=== PATIENT | female | born 1940 | race Caucasian/White ===

== ENCOUNTER 2023-09-17 20:58 | Emergency (ER) | payer MEDICARE, BC, SELFPAY ==
[2023-09-17 21:00] VITALS: BP 159/98; BMI 17.6
--- NOTE | 2023-09-17 21:11 | ED.GENMED ---
History of Present Illness
General
Chief Complaint: Fall
Source: patient and ambulance crew
Exam Limitations: none
Time Seen by Provider: 09/17/23 21:09
Nursing documentation reviewed up to this point in time: agreed with
Travel History
Have you had any contact with someone who has COVID-19?: No
Do you have any symptoms of coronavirus? Fever > 100 degrees, chills, cough, shortness of breath, sore throat, loss of taste or smell, muscle aches, or headache?: No
History of Present Illness
History of Present Illness:
83-year-old female with laceration with history of HTN, basal cell cancer removed from right lower leg 4 weeks ago and still has a dressing on, lives with her son and his , she remembers going into her bathroom to get her night shirt on and next
thing she remembers she was on the floor yelling out for her son. He came and helped her up and she walked to the bed. She is not sure if she felt dizzy, she denies losing consciousness. No blood thinners
Pt Denies headache, neck pain. Denies pain in extremities. Denies n/v/d/c. Patrice CP, SOB or abdominal pain
Past History
Past History
ED Past Medical History: HTN and Other (Stress-induced ischemia followed by dr villa)
ED Past Surgical History: Cholecystectomy
Social History
Tobacco: Non-smoker
Alcohol: Occasional
Drug: None
Personal: Single
Living: with family
Employment: Retired
Family History
Family History: Other (Noncontributory)
Review of Systems
Review of Systems
Allergies reviewed?: Yes
All Other Systems: ROS reviewed and negative except as documented in HPI and ROS
Constitutional: Denies fever or fatigue
Respiratory: Denies trouble breathing
Cardiac: Reports syncope (She states she does not think she lost consciousness but then states she does not know how she got on the floor); Denies chest pain or palpitations
ABD/GI: Reports no symptoms
: Reports no symptoms
Musculoskeletal: Reports no symptoms
Skin: Reports other (Abrasion right shoulder and elbow, laceration forehead and left upper cheek)
Neurological: Reports no symptoms
Phy Exam
Physical Exam
Physical Exam:
GENERAL: No acute distress. A&Ox3.
CONSTITUTIONAL: Afebrile.
EYES: PERRL, conjunctivae normal, EOMs intact
Neck: Supple
ENMT: moist mucus membranes, Pharynx nl
RESPIRATORY: Regular respirations, nonlabored, lungs clear.
CARDIOVASCULAR: Regular rate and rhythm, no murmurs, no rubs.
GI: Soft, nontender, normal BS
MUSCULOSKELETAL: No spinal bony tenderness. Moving all extremities well. No bony tenderness to extremities. Moves with ease. Well perfused.
SKIN: Warm, dry, pink, laceration forehead, laceration left infraorbital area,deep clean abrasion right shoulder and right elbow
PSYCH: Normal mood and affect. Well kept, interactive and appropriate
NEUROLOGIC: Awake, alert and oriented. Speech clear. Cranial nerves II through XII intact. Strength equal throughout. [id number] intact. No focal neurological deficits
Course
Orders/Labs/Results
Orders:
Orders
09/17/23 21:03
Electrocardiogram (*1) Urgent
Reason for Study: Abdominal Pain
EKG- Treatment ONCE
09/17/23 21:05
Complete Blood Count/With Diff Urgent
Comprehensive Metabolic Panel Urgent
09/17/23 21:08
Troponin I Urgent
Urinalysis Reflex To Culture Urgent
Date Specimen was Collected: 09/17/23
Time Specimen was Collected: 21:07
09/17/23 21:10
0.9% Sodium Chloride 500 ml [Nss] 500 ml IV BOLUS
Lidocaine/Epinephrine/Tetracai [Let Topical Anesthetic Gel] 3 ml .ROUTE .[facility] ONE
09/17/23 21:27
Lidocaine/Epinephrine/Tetracai [Let Topical Anesthetic Gel] 6 ml TOPICAL NOW STA
09/18/23 00:15
CT Facial Bones W/o Iv Contras Urgent
Reason For Exam: fall, facial injuries
CT Head W/o Iv Contrast Urgent
Reason For Exam: fall, facial injuries
Abnormal Lab Results
09/17/23 09/17/23
21:05 21:08
RBC 3.31 L 10^6/uL
(4.20-5.40)
Hgb 10.6 L g/dL
(12.0-16.0)
Hct 30.0 L %
(37.0-47.0)
MCH 32.0 H pg
(27.0-31.0)
Sodium 131 L mmol/L
(135-145)
Chloride 95 L mmol/L
(98-107)
BUN 28 H mg/dl
(7-17)
AST 44 H U/L
(14-36)
Urine Ketones Trace A
(Negative)
09/17/23 21:05
09/17/23 21:05
Vital Signs
Initial and Last Documented VS:
Initial Vital Signs
Temp Pulse Resp BP Pulse Ox
98.1 F 60 18 159/98 98
09/17/23 21:00 09/17/23 21:00 09/17/23 21:00 09/17/23 21:00 09/17/23 21:00
Last Documented Vital Signs
Temp Pulse Resp BP Pulse Ox
98.1 F 63 18 130/61 96
09/17/23 21:00 09/18/23 01:00 09/17/23 21:00 09/18/23 00:00 09/18/23 01:00
Procedures
Laceration Closure
Mid forehead:
Status of Wound: clean
Description of Wound Edges: sharp
Preparation: cleaned with saline
Anesthesia: Topical-LET
Revision/Debridement: routine- no revision
Type of Closure: Dermabond-skin glue
Additional information:
Steri strips applied
left lateral infraorbital :
Status of Wound: clean
Size of Wound in cm: 1.5
Description of Wound Edges: sharp
Preparation: cleaned with saline
Anesthesia: Topical-LET
Revision/Debridement: routine- no revision
Type of Closure: Dermabond-skin glue
Number of sutures: 2
Additional information:
#2 [6-0] Plain gut sutures, then the rest of the wound was closed with wound glue
MDM/Problems Addressed
Differential Diagnosis Includes:
Inferior rectus muscle damage, orbital/skull fracture vs contusion
ICH, concussion
MDM/Problems Addressed:
83-year-old female with laceration with history of HTN, basal cell cancer removed from right lower leg 4 weeks ago and still has a dressing on, lives with her son and his , she remembers going into her bathroom to get her night shirt on and next
thing she remembers she was on the floor yelling out for her son. He came and helped her up and she walked to the bed. She is not sure if she felt dizzy, she denies losing consciousness. No blood thinners
Pt Denies headache, neck pain. Denies pain in extremities. Denies n/v/d/c. Patrice CP, SOB or abdominal pain
Afebrile, alert, oriented, pleasant, no neuro deficits
EKG: Sinus bradycardia with first-degree block and occasional PVCs
11:15 p.m.
CBC with no clinically significant abnormality
CMP with no clinically significant abnormality. BUN 28, IV infusing for mild dehydration
Troponin normal
U/A neg
Laceration mid forehead and laceration glued with edges well-approximated.
Left infraorbital laceration closed with dissolvable sutures and part of the wound was glued with good approximation of edges
No bony tenderness of the face
No LOC, no neuro deficits, not anticoagulated, pt OOB and ambulating well
CT head radiology report read:
CT facial bones radiology report read:
No muscle or nerve entrapment of eye
No sign of concussion
Pt stable for discharge to care of son.
Awaiting CT results: Report to Dr. Moyer who will assume care and review results
*EKG
EKG Intrepretation Date: 09/17/23
Interpretation: abnormal
Comparison EKG: changes noted (increased TN interval, PVCs)
Rate: bradycardiac
Rhythm: sinus and PVC's
[place]: normal axis
Interval: first degree heart block
QRS Pattern: normal QRS
Ischemia: no ischemia
*Critical Care Note
Total Time (30-74mins, 75-104mins- exclusive of procedures): Not Applicable
ED Attending Note
-
Portions of this chart may have been created with voice recognition software.� Occasional wrong word or��sound alike� substitutions may have occurred due to the inherent limitations of voice recognition software.
Discharge Plan
Departure
Patient Disposition: Home (Routine Discharge)
Patient with high blood pressure during this ER visit?: No
Condition: Good
Discharge Problem:
Fall, Forehead laceration, Laceration of left orbital rim without complication, Abrasion of right shoulder, Abrasion of right elbow
Instructions: Laceration Repair With Glue (DC), Head Injury in Adults (DC), Skin Abrasions (DC)
Prescriptions:
No Action
clobetasol [Embeline] 60 GM ointment
60 gm TP BID
Patient Comments:
VAGINAL CREAM FOR INFECTION
Multivitamin
1 tab PO DAILY
aspirin 81 MG tablet,delayed release (DR/EC)
81 mg PO DAILY Qty: 30 2RF
losartan 25 MG tablet
25 mg PO DAILY Qty: 30 2RF
nebivolol 2.5 MG tablet
2.5 mg PO DAILY Qty: 30 2RF
gentamicin 1 DROP drops
1 drp ophthalmic (eye) QID Qty: 1 0RF
qrdznng-wgunmrsxaqmrm-kshwqiis 1 TABLET tablet
2 tab PO Q6 Qty: 30 0RF
cephalexin 500 MG capsule
500 mg PO TID Qty: 30 0RF
Referrals:
Max Lorenzana MD [Family Provider] - Follow up in 2-3 days
Activity Restrictions/Additional Instructions:
As we discussed, Tylenol as needed for pain.
You may be more stiff and sore in the next 1-3 days as this is not unusual after a fall.
Return here IMMEDIATELY for vomiting more than once, confusion, headache that gets worse despite Tylenol.
See your doctor in 2-3 days for recheck.
The forehead wound will take 5 days to heal. You may briefly wet the wound in the shower, just don't rub it or apply any ointments for 5 days. If the strips have not fallen off by 5 days, you may remove them. The glue should slough off within 2
weeks.
The left eye orbit laceration has 2 absorbable sutures and glue. You may briefly wet the wound in the shower, just don't rub it or apply any ointments for 5 days. After 5 days, if the glue is bothering you, you may apply Neosporin ointment or
Vaseline to help dissolve the glue.
Interventions
Interventions:
*Risk Screen - Suicide Last Done: 09/17/23 21:00
*General Assessment Last Done: 09/17/23 21:00
*Neglect/Abuse Screening Last Done: 09/17/23 21:00
ED- Fall Risk Assessment Last Done: 09/18/23 00:54
*Nursing Disposition Last Done: 09/18/23 01:17
ED-Musculoskeletal Assessment Last Done: 09/17/23 21:48
ED- Neurological Assessment Last Done: 09/17/23 21:48
ED-Skin Assessment Last Done: 09/17/23 21:48
Discharge Date and Time
Discharge Date/Time: 09/18/23 01:18
Print Language: SYRIAN
[2023-09-17 21:21] LABS: % Basophils 0.6 % (0-2); % Eosinophils 0.9 % (0-6); % Immature Granulocytes 0.3 % (0-0.5); % Lymphocytes 22.5 % (20.5-51.1); % Monocytes 8.6 % (1.7-9.3); % Neutrophils 67.1 % (42.2-75.2); Absolute Eosinophils 0.1 10^3/uL (0-0.7); Absolute Lymphocytes 1.5 10^3/uL (1.2-3.4); Absolute Monocytes 0.6 10^3/uL (0.1-0.6); Absolute Neutrophils 4.4 10^3/uL (1.4-6.5); Hemoglobin 10.6 g/dL (12.0-16.0); Mean Corp Hgb Conc. 35.3 g/dL (33.0-37.0); Mean Corpuscular Volume 90.6 fL (81.0-99.0); Mean Platelet Volume 8.3 fL (7.4-10.4); Nucleated Red Blood Cells % 0 %; Platelet Count 276 10^3/uL (130-400); Red Blood Cell Count 3.31 10^6/uL (4.20-5.40); Red Cell Dist. Width 12.9 % (11.5-14.5); White Blood Cell Count 6.6 10^3/uL (4.8-10.8)
[2023-09-17] MEDS: NSS 500 IV (21:25)
[2023-09-17] MEDS: LET TOPICAL ANESTHETIC GEL 6 ML TOPICAL (21:28)
[2023-09-17 21:33] LABS: ALT (SGPT) 25 U/L (0-35); AST (SGOT) 44 U/L (14-36); Albumin 4.3 g/dl (3.5-5.0); Alkaline Phosphatase 57 U/L (38-126); Blood Urea Nitrogen 28 mg/dl (7-17); Calcium 9.3 mg/dl (8.4-10.2); Carbon Dioxide 27 mmol/L (22-30); Chloride 95 mmol/L (98-107); Estimated Creatinine Clearance 56 ml/min; Glucose 99 mg/dl (70-99); Potassium 4.1 mmol/L (3.5-5.1); Sodium 131 mmol/L (135-145); Total Bilirubin 0.5 mg/dl (0.2-1.3); eGFR > 60.00
[2023-09-17 21:43] LABS: Troponin I < 0.012 ng/ml
[2023-09-17 22:00] VITALS: BP 139/61
[2023-09-17 23:00] VITALS: BP 135/62
[2023-09-17 23:01] LABS: Urine Albumin Negative (Neg - Trace); Urine Bilirubin Negative (Negative); Urine Character Clear (Clear); Urine Color Yellow; Urine Glucose Negative (Negative); Urine Ketone Trace (Negative); Urine Leukocyte Negative (Negative); Urine Nitrite Negative (Negative); Urine Occult Blood Negative (Negative); Urine Specific Gravity 1.015 (<1.030); Urine Urobilinogen Negative (Neg - 1+)
[2023-09-18] VITALS: BP 130/61
== END 2023-09-18 01:18 | disposition home or self-care (01) ==
LOC: EMR 20:58
PROVIDERS: Registered Nurse; EMERGENCY PHYSICIAN Emergency Medicine; FAMILY PHYSICIAN Family Medicine
DX: S40.211A Abrasion of right shoulder, initial encounter (principal); S01.81XA Laceration without foreign body of other part of head, initial encounter; S01.112A Laceration without foreign body of left eyelid and periocular area, initial encounter; W19.XXXA Unspecified fall, initial encounter; I10 Essential (primary) hypertension; E86.0 Dehydration; I49.3 Ventricular premature depolarization; Z85.828 Personal history of other malignant neoplasm of skin; Z90.49 Acquired absence of other specified parts of digestive tract
CPT/HCPCS: 99283; 12011; 96360; 70450; 70486; 80053; 81003; 84484; 85025; 93005

== ENCOUNTER → 2024-03-19 13:02 | Outpatient (REF) | payer MEDICARE, BC, SELFPAY | LOC: WDC 13:02 | PROVIDERS: ATTENDING PHYSICIAN Family Medicine | DX: M85.80 Other specified disorders of bone density and structure, unspecified site (principal); Z12.31 Encounter for screening mammogram for malignant neoplasm of breast; Z78.0 Asymptomatic menopausal state | CPT/HCPCS: 77063; 77067; 77080 ==